=== PATIENT | female | born 1940 | race Caucasian/White ===

== ENCOUNTER 2024-04-03 05:54 | Day surgery (SDC) | payer OTHER ==
[2024-03-29 12:53] VITALS: BMI 28.5
[2024-04-03] MEDS ORDERED: BUPIVACAINE HCL/PF 0.5% (5MG/ML) 10 ML VIAL ONE (07:08)
[2024-04-03] MEDS ORDERED: MIDAZOLAM HCL 2 MG/2 ML SINGLE DOSE VIAL ONE ×2 (07:11→09:51)
[2024-04-03] MEDS ORDERED: PROPOFOL 20 ML ONE (07:11)
[2024-04-03] MEDS ORDERED: BUPIVACAINE LIPOSOME/PF (EXPAREL) 266 MG/20 ML VIAL ONE (07:16)
[2024-04-03] MEDS ORDERED: BUPIVACAINE HCL/PF 0.5% (5 MG/ML) 30 ML VIAL IJ ONE (07:16)
[2024-04-03] MEDS ORDERED: KETOROLAC TROMETHAMINE 60 MG/2 ML VIAL ONE (07:23)
[2024-04-03] MEDS ORDERED: VANCOMYCIN 1,000 MG VIAL (RESTRICTED TO ID ONLY) ONE (07:23)
[2024-04-03] MEDS ORDERED: BUPIVACAINE HCL/PF 2.5 MG/ML - 30 ML VIAL IJ ONE (07:40)
[2024-04-03] MEDS ORDERED: TRANEXAMIC ACID 1000 MG/10 ML VIAL ONE (09:08)
[2024-04-03] MEDS ORDERED: SODIUM CHLORIDE 0.9% P/F 10 ML VIAL IJ ONE (09:08)
[2024-04-03] MEDS ORDERED: ceFAZolin SODIUM 1 GM VIAL ONE (09:08)
[2024-04-03] MEDS ORDERED: DEXAMETHASONE SOD PHOSPHATE 4 MG/1 ML VIAL ONE (09:08)
[2024-04-03] MEDS ORDERED: PHENYLEPHRINE HCL 10 MG/1 ML SINGLE DOSE VIAL ONE (09:08)
[2024-04-03] MEDS ORDERED: ONDANSETRON 4 MG/2 ML VIAL ONE (09:08)
[2024-04-03] MEDS ORDERED: KETOROLAC TROMETHAMINE 30 MG/1 ML VIAL ONE ×2 (09:08)
[2024-04-03] MEDS ORDERED: MAGNESIUM HYDROX 2400MG/30ML ORAL SUSPENSION 30 ML CUP PO PRN (11:03)
[2024-04-03] MEDS ORDERED: ONDANSETRON 4 MG/2 ML VIAL IVPUSH PRN ×2 (11:03→11:04)
[2024-04-03] MEDS ORDERED: MAG HYDROX/AL HYDROX/SIMETH 30 ML UNIT-DOSE CUP PO PRN (11:03)
[2024-04-03] MEDS ORDERED: oxyCODONE HCL 5 MG TABLET PO PRN ×2 (11:04)
[2024-04-03] MEDS: ACETAMINOPHEN 1000 MG/100 ML BAG IVPB ONE (11:16)
[2024-04-03] MEDS: CEFAZOLIN 2 GM in DEXTROSE 5%-WATER - 100 ML IVPB ONE (13:45)
[2024-04-03] MEDS: ACETAMINOPHEN 500 MG TABLET (FP) PO SCH (13:46)
[2024-04-03] MEDS: TRANEXAMIC ACID 1000 MG/10 ML VIAL IVPUSH ONE (13:46)
[2024-04-03] MEDS: ACETAMINOPHEN 1000 MG/100 ML BAG IVPB SCH (13:47)
[2024-04-03] MEDS: CEFAZOLIN SODIUM 2 GM in DEXTROSE 5%-WATER 100 ML IVPB SCH (16:37)
[2024-04-03] MEDS: LACTATED RINGERS SOLUTION 1,000 ML IV SCH (20:14)
[2024-04-03] MEDS: SENNOSIDES/DOCUSATE COMBO (SENNA PLUS) TABLET (UD) PO SCH (21:43)
[2024-04-03] MEDS: FAMOTIDINE 20 MG TABLET PO SCH (21:43)
[2024-04-03] MEDS: ASPIRIN 81 MG CHEWABLE TABLETS PO SCH (21:44)
[2024-04-03] MEDS: oxyCODONE HCL 10 MG SUSTAINED ACTING TABLET PO SCH (21:44)
[2024-04-04] MEDS: CEFAZOLIN SODIUM 2 GM in DEXTROSE 5%-WATER 100 ML IVPB SCH
[2024-04-04 05:56] VITALS: RESP 17
[2024-04-04 08:27] LABS: HEMOGLOBIN 8.9 G/dL (10.7-15.3); MCH 30.7 pg (25.7-33.7); MCHC 33.1 g/dl (32.0-36.0); MEAN CELL VOLUME 92.8 fl (80-96); MEAN PLT VOLUME 9.3 fl (7.5-11.1); PLATELET COUNT 217.1 10^3/uL (134-434); RBC 2.91 10^6/uL (3.60-5.2); RDW 13.9 % (11.6-15.6); WHITE BLOOD COUNT 11.7 10^3/uL (4.0-10.8)
[2024-04-04 08:43] LABS: CALCIUM 8.8 mg/dl (8.5-10.1); CREATININE 1.8 mg/dl (0.6-1.3); POTASSIUM 4.7 mmol/L (3.5-5.1)
[2024-04-04] MEDS: amLODIPine BESYLATE 5 MG TABLET (FP) PO SCH (09:06)
[2024-04-04] MEDS: LEVOTHYROXINE NA 75 MCG TABLET (FP) PO SCH (09:06)
[2024-04-04] MEDS: MULTIVITAMINS (DAILY MVI) TABLET (FP) PO SCH (09:06)
[2024-04-04] MEDS: LISINOPRIL 20 MG TABLET PO SCH (09:06)
[2024-04-04] MEDS: ATORVASTATIN CA 40 MG TABLET (FP) PO SCH (09:06)
[2024-04-04] MEDS: SODIUM BICARBONATE 650 MG TABLET PO SCH (09:09)
[2024-04-04 10:21] VITALS: BP 120/59; PULSE 68; TEMP 98.3
== END 2024-04-04 15:45 | disposition home or self-care (01) ==
LOC: FASUSAT 05:54 → FM/S 12:21 → FASUSAT 04-04 15:45
PROC: 8E0Y0CZ Robotic Assisted Procedure of Lower Extremity, Open Approach (ICD-10-PCS; 2024-04-03)
PROC: 0SRC0J9 Replacement of Right Knee Joint with Synthetic Substitute, Cemented, Open Approach (ICD-10-PCS; principal; 2024-04-03 08:25)
DX: M17.11 Unilateral primary osteoarthritis, right knee (principal)
CPT/HCPCS: 20985; 27447; C1776; S2900; 36415; 73560-TC-RT-FY; 80048; 85027; 94760; 97010-GP; 97116-GP; 97162-GP; C1889; J0131